=== PATIENT | female | born 1990 | race Caucasian/White ===

== ENCOUNTER 2019-01-04 12:46 | Emergency (ER) | payer MEDICAID ==
[2019-01-04] MEDS ORDERED: KETOROLAC 60 MG/2 ML VIAL IM STA (13:05)
--- NOTE | 2019-01-04 13:08 | ED Physician Documentation ---
History of Present Illness - Stated complaint Stated Complaint: BLEEDING/CRAMPS - Chief complaint Chief Complaint: General - History obtained from History obtained from: Patient - History of Present Illness Timing: Other ([id number] She always has her menses mid month usually the 15th of the 17th that she did last month. Now she is had severe cramps and bleeding for 3 days with heavy bleeding about 2 pads an hour. She has Nexplanon in place. is unlikely but she is sexually active.) Review of Systems Constitutional: denies: Fever, Chills Nose: denies: Rhinorrhea / runny nose, Congestion Respiratory: denies: Dyspnea GI: denies: Nausea, Vomiting, Diarrhea PD PAST MEDICAL HISTORY - Present Medications Home Medications: Ambulatory Orders Medication Instructions Recorded Confirmed Estradiol Valerate/Dienogest 1 each PO TID #28 tablet 01/04/19 [Natazia 28 Tablet] Ibuprofen [Motrin] 800 mg PO Q8H PRN #14 tablet 01/04/19 Oxycodone HCl/Acetaminophen 1 - 2 each PO Q6H PRN #10 tablet 01/04/19 [Percocet 5-325 mg Tablet] Sertraline HCl [Zoloft] 100 mg PO DAILY 01/04/19 01/04/19 hydrOXYzine HCl [Hydroxyzine HCl] 10 mg PO PRN PRN 01/04/19 01/04/19 - Allergies Allergies/Adverse Reactions: Allergies Allergy/AdvReac Type Severity Reaction Status Date / Time hydrocodone Allergy Itching Verified 01/04/19 13:38 PD ED PE NORMAL - Vitals Vital signs reviewed: Yes - General General: Alert and oriented X 3, Other (uncomfortable) - Abdomen Abdomen: Normal bowel sounds, Soft, Non tender - Neuro Neuro: Alert and oriented X 3, Normal speech - Psych Psych: Normal mood, Normal affect Results - Vitals Vitals: Vital Signs - 24 hr 01/04/19 01/04/19 12:52 14:04 Temperature 36.5 C Heart Rate 81 60 Respiratory 18 18 Rate Blood Pressure 110/72 109/70 O2 Saturation 99 97 Oxygen O2 Source Room air - Labs Labs: Laboratory Tests 01/04/19 01/04/19 01/04/19 13:14 13:14 13:14 WBC 7.7 RBC 4.34 Hgb 13.5 Hct 39.6 MCV 91.2 MCH 31.1 H MCHC 34.1 RDW 12.0 Plt Count 322 MPV 11.1 H Neut # (Auto) 4.6 Lymph # (Auto) 2.5 [place] # (Auto) 0.5 Eos # (Auto) 0.1 Baso # (Auto) 0.0 Absolute Nucleated RBC 0.00 Nucleated RBC % 0.0 Sodium 140 Potassium 4.2 Chloride 108 Carbon Dioxide 23 Anion Gap 9.0 BUN 8 Creatinine 0.6 Estimated GFR (MDRD) 121 Glucose 93 Calcium 8.8 HCG, Quant Blood Type A POSITIVE 01/04/19 13:14 WBC RBC Hgb Hct MCV MCH MCHC RDW Plt Count MPV Neut # (Auto) Lymph # (Auto) [place] # (Auto) Eos # (Auto) Baso # (Auto) Absolute Nucleated RBC Nucleated RBC % Sodium Potassium Chloride Carbon Dioxide Anion Gap BUN Creatinine Estimated GFR (MDRD) Glucose Calcium HCG, Quant < 0.60 Blood Type PD MEDICAL DECISION MAKING - ED course ED course: 28-year-old woman with menorrhagia, nontender and H&H is reassuring. Negative test. Started on high-dose control. Departure - Departure Disposition: 01 Home, Self Care Clinical Impression: Menorrhagia with irregular cycle Condition: Good Record reviewed to determine appropriate education?: Yes Health Concerns: heavy bleed/cramps Plan of Treatment: OCPs, followup attendant child activity Care Goals: stop symptoms/bleeding Assessment: as above Instructions: ED Bleeding Menstrual Heavy [facility]-Up: [facility] [Provider Group] - Within 1 week Prescriptions: Estradiol Valerate/Dienogest [Natazia 28 Tablet] 1 each PO TID #28 tablet Ibuprofen [Motrin] 800 mg PO Q8H PRN #14 tablet PRN Reason: PAIN &/OR FEVER Oxycodone HCl/Acetaminophen [Percocet 5-325 mg Tablet] 1 - 2 each PO Q6H PRN #10 tablet PRN Reason: pain Discharge Date/Time: 01/04/19 14:05
[2019-01-04 13:21] LABS: BASOPHILS % (AUTO) 0.5 %; EOSINOPHILS # (AUTO) 0.1 10^3/uL (0.0-0.7); EOSINOPHILS % (AUTO) 0.9 %; HGB - HEMOGLOBIN 13.5 g/dL (12.0-16.0); LYMPHOCYTES # (AUTO) 2.5 10^3/uL (1.5-3.5); LYMPHOCYTES % (AUTO) 32.6 %; MEAN CORPUSCULAR HEMOGLOBIN 31.1 pg (27.0-31.0); MEAN CORPUSCULAR HGB CONC 34.1 g/dL (32.0-36.0); MEAN CORPUSCULAR VOLUME 91.2 fL (81.0-99.0); MEAN PLATELET VOLUME 11.1 fL (7.9-10.8); MONOCYTES # (AUTO) 0.5 10^3/uL (0.0-1.0); MONOCYTES % (AUTO) 6.2 %; NEUTROPHILS # (AUTO) 4.6 10^3/uL (1.5-6.6); NEUTROPHILS % (AUTO) 59.5 %; PLT - PLATELET COUNT 322 10^3/uL (130-450); RED BLOOD COUNT 4.34 10^6/uL (4.20-5.40); WHITE BLOOD COUNT 7.7 x10^3/uL (4.8-10.8)
[2019-01-04 13:31] LABS: CALCIUM 8.8 mg/dL (8.5-10.3); CREATININE 0.6 mg/dL (0.4-1.0)
[2019-01-04 14:05] VITALS: BP 109/70
== END 2019-01-04 14:05 | disposition home or self-care (01) ==
LOC: ED 12:46
DX: N92.0 Excessive and frequent menstruation with regular cycle (principal); Z96.89 Presence of other specified functional implants
CPT/HCPCS: 36415; 80048; 84702; 85025; 86900; 86901; 96372; 99283; 99284